=== PATIENT | female | born 1945 | race Caucasian/White ===

== ENCOUNTER 2016-07-27 15:05 | Emergency (ER) | payer MEDICARE, OTHER ==
[~2016-07-27 15:05] MED LIST: ADVIL PO; ASAB PO; CALTRA600D PO; CIP5 PO; CLARIT10 PO; COREG25 PO; COREG6 PO; DIOV160 PO; EYE INJECTION; KLOR-CON M2020 MEQ PO; L20 PO; MICARDIS40 PO; NATURA2 OP; OS500+D PO; PEP20 PO; VITAMIN D31000 UNIT PO; XANAX1 MG PO; ZANTAC 75 PO
[2016-07-27 15:49] LABS: BASOPHILS 0.1 %; BASOPHILS ABSOLUTE 0.01 10/3/uL (0.0-0.16); EOSINOPHILS ABSOLUTE 0.07 10/3/uL (0.0-0.53); ER CBC TAT 0 Hrs 07 Mins; HEMATOCRIT 37.8 % (36.0-48.0); HEMOGLOBIN 12.5 g/dL (12.0-16.0); IMMATURE GRANULOCYTES 0.1 %; IMMATURE GRANULOCYTES ABSOLUTE 0.01 10/3/uL (0.0-0.11); LYMPHOCYTES 11.7 %; LYMPHOCYTES ABSOLUTE 0.83 10/3/uL (0.67-4.30); MEAN CORPUS HGB CONC 33.1 g/dL (32.0-36.0); MEAN CORPUSCULAR HEMOGLOB 28.9 pg (26.0-34.0); MEAN CORPUSCULAR VOLUME 87.3 fL (80-100); MEAN PLATELET VOLUME 8.5 fL (9.2-13.0); MONOCYTES 6.1 %; MONOCYTES ABSOLUTE 0.43 10/3/uL (0.21-1.20); NEUTROPHILS ABSOLUTE 5.73 10/3/uL (2.02-8.40); RBC DISTRIBUTION WIDTH 14.3 % (12.0-16.0); RED CELL COUNT 4.33 10/6/uL (4.0-5.6); WHITE BLOOD CELLS 7.1 10/3/uL (4.5-10.5)
[2016-07-27 15:51] LABS: MANUAL DIFF NO %; PLATELET COUNT 148 10/3/uL (150-400)
[2016-07-27 16:02] LABS: PARTIAL THROMBO TIME 48.4 SEC (22.5-37.2)
[2016-07-27 16:03] LABS: INTERNATIONAL NORMAL RATI 1.6 UNITS (-); PROTIME (NOT ORD) 18.9 SEC (12.0-14.5)
[2016-07-27 16:05] LABS: CHEST PAIN PROFILE TAT 0 Hrs 23 Mins; CHLORIDE, SERUM 106 MMOL/L (96-112); CO2 (CARBON DIOXIDE) 29 MMOL/L (24-34); CREATININE 1.11 MG/DL (0.55-1.02); D-DIMER QUANTITATIVE 0.81 ug/mLFEU (< 0.50); GFR AFRICAN AMERICAN 58 ML/MIN (>=60); GFR NON AFRICAN AMERICAN 50 ML/MIN (>=60); GLUCOSE, SERUM 100 MG/DL (60-99); POTASSIUM, SERUM 3.9 MMOL/L (3.5-5.3); SODIUM, SERUM 142 MMOL/L (135-148); TROPONIN I <0.02 NG/ML (<0.05)
[2016-07-27 16:08] LABS: BUN (BLOOD UREA NITROGEN) 18 MG/DL (6-23); CALCIUM, SERUM 7.7 MG/DL (8.5-10.4)
[2016-07-27 18:46] LABS: ASCORBIC ACID (UR NOT ORDER) NEG (NEG); BILIRUBIN, URINE NEGATIVE (NEG); ER URINALYSIS TAT 0 Hrs 24 Mins; KETONE, URINE NEGATIVE (NEG); LEUKOCYTE ESTERASE(NOT OR LARGE (NEG); NITRITE (URINE) POS (NEG); WBC (NOT ORDERED) (RFLEX) 94 (0-5)
[2016-07-27 19:24] LABS: HCO3 (ACTUAL BICARBONATE) 23.1 MEQ/L (23-27); INSTRUMENT SERIAL # 8087; PCO2 (CO2 TENSION) 37 MMHG (35-45); PO2 (O2 TENSION) 85 MMHG (79-93); pH 7.42 (7.37-7.43)
[2016-07-27 19:25] LABS: ALLENS TEST Pos; CARBOXYHEMOGLOBIN 1.4 % (0-3); DEVICE NC; HEMOBLOGIN CONTENT 13.2 G/DL (12-16); METHEMOGLOBIN 0.3 % (0-3); O2 CONTENT 17.6 VOL% (18-24); OPERATOR ID 35798; SAMPLE Arterial
== END 2016-07-28 01:07 | disposition home or self-care (01) ==
LOC: ER 15:05
PROVIDERS: Nurse Practitioner Family
DX: R06.02 Shortness of breath (principal); N39.0 Urinary tract infection, site not specified; N17.9 Acute kidney failure, unspecified; I48.91 Unspecified atrial fibrillation; Z88.1 Allergy status to other antibiotic agents; Z88.5 Allergy status to narcotic agent; Z88.2 Allergy status to sulfonamides; Z88.0 Allergy status to penicillin; Z79.82 Long term (current) use of aspirin; Z79.899 Other long term (current) drug therapy
CPT/HCPCS: 36600; 71010; 71275; 80048; 81001; 82805; 83690; 83735; 83880; 84484; 85025; 85379; 85610; 85730; 87077; 87086; 87186; 99285; Q9967